=== PATIENT | female | born 1955 | race Caucasian/White ===

== ENCOUNTER 2017-11-08 09:49 | Outpatient (CLI) | payer MEDICARE | END 2017-11-08 09:50 | disposition home or self-care (01) | LOC: BICMRI 09:49 | PROVIDERS: ATTEND Physician Assistant | DX: Z12.31 Encounter for screening mammogram for malignant neoplasm of breast (principal); R42 Dizziness and giddiness | CPT/HCPCS: 70553; 77063; 77067 ==

== ENCOUNTER 2018-05-18 11:47 | Outpatient (CLI) | payer MEDICARE ==
--- NOTE | 2018-05-18 13:58 | MRI ---
MRI CERVICAL SPINE: HISTORY: Cervical radiculopathy, M54.12. TECHNIQUE: Multiplanar, multisequence noncontrast enhanced MRI images cervical spine. RADIOGRAPHIC FINDINGS: C1-2: Unremarkable. C2-3: There is no evidence of significant central stenosis or neural foraminal narrowing. C3-4: There is a mild broad-based disk-osteophyte complex centrally resulting in minimal but not a s ignificant degree of central stenosis. There is moderate bilateral C3-4 neural foraminal narrowing d ue to uncovertebral osteophyte hypertrophy. C4-5: Disk desiccation is seen. There is a broad-based disk-osteophyte complex centrally compressin g the thecal sac resulting in a moderate degree of central and lateral recess stenosis. Moderate temo ateral neural foraminal narrowing is seen due to uncovertebral osteophyte hypertrophy. C5-6: Disk desiccation is seen. There is a broad-based disk-osteophyte complex centrally compressin g the thecal sac resulting in moderate to severe compression of the thecal sac and mild compression o f the spinal cord in the right paracentral region. There is moderate to severe right and moderate le ft C5-6 neural foraminal narrowing due to uncovertebral osteophyte hypertrophy. C6-7: Disk desiccation is seen. There is a broad-based disk-osteophyte complex centrally compressin g the thecal sac resulting in mild central spinal stenosis. Moderate right C6-7 neural foraminal garry rowing is seen. the left neural foramen is patent. There is significant right C6-7 neural foraminal narrowing due to osteophyte encroachment. C7-T1: Unremarkable. IMPRESSION: Broad-based central disk-osteophyte complexes with central and right paracentral significant 5-6 disk -osteophyte complexes compressing the thecal sac and spinal cord. There is also some right C5-6 neur al foraminal narrowing seen. Less significant C4-5 and C6-7 central stenosis also seen. POS: [facility]
--- NOTE | 2018-05-18 15:15 | MRI ---
MRI OF THE LUMBAR SPINE: Date: 05/18/18 HISTORY: Low back pain with right lower extremity radiculopathy. TECHNIQUE: Multiplanar, multisequence MR imaging of the lumbar spine is provided without contrast. FINDINGS: The sagittal STIR imaging demonstrates no focal area of osseous marrow edema. Congenitally short pedi cles lead to diffuse central canal stenosis. There is no anterolisthesis or retrolisthesis noted. Ass uming five lumbar-type vertebral bodies, conus medullaris terminates at T12-L1. T12-L1: Mild bilateral facet hypertrophy with no significant central canal or neural foraminal steno sis. L1-2: There is disc desiccation and disc space narrowing with a small central disc protrusion. There is bilateral facet hypertrophy and hypertrophy of the ligamentum flavum. There is no significant jose tral canal or neural foraminal stenosis. L2-3: Moderate bilateral facet hypertrophy, right greater than left. There is disc space narrowing, disc desiccation, and mild disc bulge. There is no significant central canal or neural foraminal sten osis. L3-4: There is moderate bilateral facet hypertrophy and hypertrophy of the ligamentum flavum. There is disc space narrowing and disc desiccation with moderate central canal stenosis and mid bilateral n eural foraminal stenosis. L4-5: There is disc space narrowing, disc desiccation, and disc bulge. There is a superimposed centr al/left paracentral annular tear and associated central/left paracentral/left foraminal disc protrusi on. There is associated mild central canal stenosis and moderate left lateral recess stenosis. Bilate ral facet hypertrophy present with moderate left and mild right neural foraminal stenosis. L5-S1: Prominent bilateral facet hypertrophy. No significant central canal or neural foraminal steno sis. Retroperitoneal structures demonstrate a small cyst within the right kidney. IMPRESSION: Multilevel lumbar spine degenerative change as detailed above, most prominent at the L4-5 and L3-4 le vels. POS: OFF
== END 2018-05-18 11:48 | disposition home or self-care (01) ==
LOC: BICMRI 11:47
PROVIDERS: ATTEND Neurological Surgery
DX: M47.26 Other spondylosis with radiculopathy, lumbar region (principal); M54.12 Radiculopathy, cervical region; M25.78 Osteophyte, vertebrae; M48.02 Spinal stenosis, cervical region; M99.81 Other biomechanical lesions of cervical region
CPT/HCPCS: 72141; 72148

== ENCOUNTER 2018-06-19 06:32 | Day surgery (SDC) | payer MEDICARE ==
[2018-06-12 16:10] VITALS: BMI 40.6
[2018-06-19] MEDS ORDERED: CEFAZOLIN 2 GM/50 ML BAG ONE ×2 (07:17→13:23)
--- NOTE | 2018-06-19 07:51 | HP ---
HISTORY OF PRESENT ILLNESS: Ms. Callaway is known to us from a consultation for cervical degenerative disk disease in 2011 and returns today with a right-sided C6 radiculopathy and what could potentially be even components of right-sided carpal tunnel syndrome. She has an EMG that reveals evidence of both from Dr. Borrero as well as new MRI from Radiology that reveals foraminal stenosis to the right at C5-C6 that matches her symptoms well. She has attempted various conservative interventions including epidural steroid injections, medications, and therapy with little efficacy. PAST MEDICAL HISTORY: Significant for hyperlipidemia, hypothyroidism, and chronic pain syndrome. CURRENT MEDICATIONS: 1. Lovastatin. 2. Levothyroxine. 3. Biotin. 4. Methocarbamol. 5. Amitriptyline. 6. Tylenol No. 3. 7. Ibuprofen. PAST SURGICAL HISTORY: Left ear x2 and a unspecified wrist surgery. ALLERGIES: NO KNOWN DRUG ALLERGIES. PHYSICAL EXAMINATION: GENERAL: The patient is alert and oriented x3. MUSCULOSKELETAL: Gait is normal. No ataxia. She has a positive Spurling's to the right. Upper extremity motor exam is normal. ASSESSMENT: Cervical radiculopathy, carpal tunnel syndrome. PLAN: Dr. Dill met with the patient, reviewed imaging, and opted for a C5-C6 ACDF as well as a right carpal tunnel release. He explained to the patient the risks, benefits, and alternatives to the procedure. The patient expressed understanding and elected to proceed as discussed. I do believe that the patient is mentally competent and capable of making medical decisions for herself. We will move forward with surgery as planned. Job ID: [id number]
[2018-06-19] MEDS ORDERED: Fentanyl 100 MCG/2 ML VIAL ONE ×2 (08:48→11:36)
[2018-06-19] MEDS ORDERED: Lidocaine 1% w/Epinephrine 1:100K 30 ML VIAL ONE (09:17)
[2018-06-19] MEDS ORDERED: Midazolam HCl 2 mg/2 ml Vial ONE (09:18)
[2018-06-19] MEDS ORDERED: HYDROcodone/Acetaminophen 5/325 mg Tablet ONE ×2 (13:26→14:23)
--- NOTE | 2018-06-19 13:33 | OP ---
DATE OF PROCEDURE: 06/19/2018 PIPE FINISHER: Jeronimo Anthony PA-C. INDICATION: Pain. DIAGNOSES: Cervical radiculopathy and carpal tunnel syndrome, right. PROCEDURES PERFORMED: 1. Anterior cervical discectomy infusion, C5-C6. 2. Right carpal tunnel release. ANESTHESIA: General. DESCRIPTION OF PROCEDURE: The patient was brought into the operating room and placed under general anesthesia. She was placed on table in supine position. A transverse incision was planned over the lateral aspect of the neck on the right. After prepping and draping and after a preoperative pause, the incision was created. The underlying platysma muscles were identified and incised. The blunt tissue plane anterior to the sternocleidomastoid muscle was used to gain access to the prevertebral space. After identifying the appropriate level, annulotomy was performed in the C5-C6 disk. All disk materials as well as anterior and posterior osteophytes were removed. After decompressing the C5-C6 level, a 7 mm lordotic PEEK cage packed with allograft and autograft material was placed within the interbody space. An anterior cervical plate was then fashioned to the front spine and secured with a total of 4 fixed screws. Midline and lateral structures were inspected and found to be free from significant trauma. The wound was irrigated. Hemostasis was maintained throughout. The wound was then closed in anatomic layers and a pressure dressing was applied. There were no known procedural complications. Under the same anesthesia, the patient was redraped, extending the right arm perpendicular to the body. It was prepped up to the level of the axilla. A linear incision was then planned across the wrist on the right side in line with a long axis of the fourth digit. This area was carefully infiltrated with lidocaine. After a pause, incision was created. A self-retaining retractor was placed. The underlying carpal tunnel ligament was identified and incised. The incision was extended in proximal and distal directions until the carpal tunnel elements were decompressed. The wound was again irrigated. Hemostasis was maintained throughout. The incision was closed in a single-layer technique. The procedure came to an end without known complication. Job ID: [id number]
[2018-06-19] MEDS ORDERED: Lidocaine 1% PF 5 ML VIAL ONE (14:08)
[2018-06-19] MEDS ORDERED: ePHEDrine/0.9% NaCl/PF SYRINGE 50 mg/10 ml ONE (14:08)
[2018-06-19] MEDS ORDERED: Ondansetron PF 4 MG/2 ML Vial ONE (14:08)
[2018-06-19] MEDS ORDERED: PHENYLEPHRINE-NS 100 MCG/ML 10 ML SYRINGE ONE (14:08)
[2018-06-19] MEDS ORDERED: PROPOFOL 200 MG/20 ML VIAL ONE (14:08)
[2018-06-19] MEDS ORDERED: Glycopyrrolate 0.2 MG/ML 5 ML SYRINGE ONE ×2 (14:08)
== END 2018-06-19 14:12 | disposition home or self-care (01) ==
LOC: SDC 06:32
PROVIDERS: ATTEND Neurological Surgery
PROC: 01N50ZZ Release Median Nerve, Open Approach (ICD-10-PCS; principal; 2018-06-19)
PROC: 0RG1070 Fusion of Cervical Vertebral Joint with Autologous Tissue Substitute, Anterior Approach, Anterior Column, Open Approach (ICD-10-PCS; 2018-06-19)
DX: M54.12 Radiculopathy, cervical region (principal); G56.01 Carpal tunnel syndrome, right upper limb; E78.5 Hyperlipidemia, unspecified; E03.9 Hypothyroidism, unspecified; Z79.899 Other long term (current) drug therapy
CPT/HCPCS: 76001; 96374; C1713; C1776; J2001; J2250; J3010

== ENCOUNTER 2018-07-26 12:16 | Outpatient (CLI) | payer MEDICARE | END 2018-07-26 12:17 | disposition home or self-care (01) | LOC: CP 12:16 | PROVIDERS: ATTEND Internal Medicine Critical Care Medicine | DX: J44.9 Chronic obstructive pulmonary disease, unspecified (principal); R06.09 Other forms of dyspnea | CPT/HCPCS: 80307; 94060; 94727; 94729; G0483 ==

== ENCOUNTER 2018-08-10 08:59 | Outpatient (CLI) | payer MEDICARE ==
--- NOTE | 2018-08-10 11:51 | BD ---
DEXA BONE SCAN: HISTORY: Age-related osteoporosis. FINDINGS: DEXA bone scan is performed using Hologic bone mineral density unit. Lumbar Spine: BMD (g/cm2) L1 0.95 T-Score: -0.3 Z-Score: 1.0 L2 0.98 T-Score: -0.4 Z-Score: 1.1 L3 1.02 T-Score: -0.6 Z-Score: 1.0 L4 1.05 T-Score: -0.1 Z-Score: 1.6 L1-L4 1.00 T-Score: -0.4 Z-Score: 1.2 Left Hip: Femoral Neck: 0.81 T-Score: -0.3 Z-Score: 1.0 Total Femur: 0.96 T-Score: -0.2 Z-Score: 1.2 Impression: Normal bone mineral density. The patient does not have a significant increased risk of osteoporotic fractures. POS: [facility]
== END 2018-08-10 09:00 | disposition home or self-care (01) ==
LOC: BICMAMMO 08:59
PROVIDERS: ATTEND Physician Assistant
DX: Z13.820 Encounter for screening for osteoporosis (principal); M51.37 Other intervertebral disc degeneration, lumbosacral region
CPT/HCPCS: 77080

== ENCOUNTER 2018-11-21 10:50 | Outpatient (CLI) | payer MEDICARE ==
--- NOTE | 2018-11-21 11:45 | MMO ---
Bilateral MAMMO Bilat Screen [facility]. CLINICAL HISTORY: Patient is 63 years old and is seen for screening. The patient has no family history of breast cancer. The patient has no personal history of cancer. VIEWS: The views performed were: bilateral craniocaudal with tomosynthesis and bilateral mediolateral oblique with tomosynthesis. FILMS COMPARED: The present examination has been compared to prior imaging studies performed at [facility] on 07/30/2013, 08/16/2014, 08/18/2015, 11/01/2016 and 11/08/2017. MAMMOGRAM FINDINGS: There are scattered fibroglandular densities. There are no suspicious masses, suspicious calcifications, or new areas of architectural distortion. IMPRESSION: THERE IS NO MAMMOGRAPHIC EVIDENCE OF MALIGNANCY. A ROUTINE FOLLOW-UP MAMMOGRAM IN 1 YEAR IS RECOMMENDED. THE RESULTS OF THIS EXAM WERE SENT TO THE PATIENT. ACR BI-RADS Category 1 - Negative MAMMOGRAPHY NOTE: 1. A negative mammogram report should not delay a biopsy if a dominant of clinically suspicious mass is present. 2. Approximately 10% to 15% of breast cancers are not detected by mammography. 3. Adenosis and dense breasts may obscure an underlying neoplasm.
== END 2018-11-21 10:51 | disposition home or self-care (01) ==
LOC: BICMAMMO 10:50
PROVIDERS: ATTEND Physician Assistant
DX: Z12.31 Encounter for screening mammogram for malignant neoplasm of breast (principal)
CPT/HCPCS: 77063; 77067

== ENCOUNTER 2019-01-15 15:32 | Inpatient (IN) | payer MEDICARE ==
[2019-01-15] MEDS ORDERED: PROPOFOL 200 MG/20 ML VIAL ONE (16:21)
[2019-01-15] MEDS ORDERED: Dexamethasone 20 MG/5 ML VIAL ONE (16:21)
[2019-01-15] MEDS ORDERED: Lidocaine 1% PF 5 ML VIAL ONE (16:21)
[2019-01-15] MEDS ORDERED: Ondansetron PF 4 MG/2 ML Vial ONE (16:21)
[2019-01-15] MEDS ORDERED: Succinylcholine Chloride 20 MG/ML 10 ml SYRINGE FS ONE (16:21)
[2019-01-15] MEDS ORDERED: Glycopyrrolate 0.2 MG/ML 5 ML SYRINGE ONE (16:21)
[2019-01-15] MEDS ORDERED: Rocuronium Bromide 10 MG/ML (10ML VIAL) ONE (16:21)
[2019-01-15] MEDS ORDERED: ePHEDrine 50 MG/ML VIAL ONE (16:21)
--- NOTE | 2019-01-15 16:26 | RAD ---
EXAM: CHEST ONE VIEW HISTORY: Preoperative evaluation. Appendicitis. COMPARISON: 03/16/2018 FINDINGS: The cardiac silhouette and pulmonary vasculature is within normal limits. There is linear atelectasis present at the left lung base. Lungs otherwise appear clear. There have been interval postsurgical changes related to anterior cervical fusion lower cervical spine. Degenerative changes are seen in th oracic spine. No other interval change. IMPRESSION: No acute cardiopulmonary process.
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
[2019-01-15] MEDS ORDERED: Promethazine HCl 25 MG/ML VIAL IM PRN ×2 (20:57→21:48)
[2019-01-15] MEDS ORDERED: Ondansetron HCl/PF 4 MG/2 ML Vial IVP PRN (20:57)
[2019-01-15] MEDS ORDERED: Promethazine HCl 25 MG/ML VIAL SLOW IVP PRN (20:57)
[2019-01-15] MEDS ORDERED: Fentanyl 100 MCG/2 ML VIAL ONE (21:06)
[2019-01-15] MEDS ORDERED: Dextrose 5% in Water 1,000 ML IV PRN (21:48)
[2019-01-15] MEDS ORDERED: Morphine 4 MG/ML VIAL SLOW IVP PRN (21:48)
[2019-01-15] MEDS ORDERED: Ondansetron PF 4 MG/2 ML Vial IVP PRN (21:48)
[2019-01-15] MEDS ORDERED: HYDROcodone/Acetaminophen 10/325 mg Tablet PO PRN (21:48)
[2019-01-15] MEDS ORDERED: Morphine 2 MG/ML SYRINGE SLOW IVP PRN (21:48)
[2019-01-15] MEDS ORDERED: Dextrose 50% Abboject 50 ML SYRINGE SLOW IVP PRN (21:48)
[2019-01-15] MEDS ORDERED: hydrALAZINE 20 MG/ML VIAL SLOW IVP PRN (21:48)
[2019-01-15] MEDS: D5 1/2 NS w/20 mEq KCL 1,000 ML IV SCH (22:39)
[2019-01-15 23:33] VITALS: BMI 43.4
[2019-01-16] MEDS: Ketorolac Tromethamine 60 MG/2 ML VIAL IVP SCH ×2 (00:51→05:46)
[2019-01-16 03:58] VITALS: TEMP 98.2
[2019-01-16 05:24] LABS: #Monocytes 0.3 thou/uL (0.11-0.59); #Neutrophils 6.7 thou/uL (1.40-6.50); %Basophils 0.5 % (0.0-1.0); %Lymphocytes 12.1 % (21.0-51.0); %Monocytes 3.1 % (0.0-10.0); %Neutrophils 84.2 % (42.0-75.0); Hemoglobin 12.6 g/dL (12.0-16.0); Mean Corpuscular Hemoglobin 30.9 pg (27.0-31.0); Mean Platelet Volume 6.5 fL (7.4-10.4); Platelet Count 205 thou/uL (130-400); RBC Distribution Width 11.2 % (11.5-14.5); Red Blood Cell (RBC) Count 4.06 mill/uL (4.20-5.40)
[2019-01-16] MEDS: D5 1/2 NS w/20 mEq KCL 1,000 ML IV SCH (05:47)
[2019-01-16] MEDS ORDERED: Famotidine/PF 20 mg/2ml Vial SLOW IVP SCH (09:00)
[2019-01-16] MEDS ORDERED: Famotidine 20 MG TAB PO SCH (09:00)
[2019-01-16 09:21] VITALS: BP 100/65
--- NOTE | 2019-01-16 11:53 | DIS ---
DATE OF ADMISSION: 01/15/2019 DATE OF DISCHARGE: 01/16/2019 ADMISSION DIAGNOSIS: Acute appendicitis. DISCHARGE DIAGNOSIS: Acute appendicitis. OPERATION PERFORMED: Laparoscopic appendectomy. ADMISSION HISTORY: The patient is a 63-year-old white female. She presented to the emergency room with symptoms and CT scan typical of acute appendicitis. She was taken to the operating room for appendectomy. HOSPITAL COURSE: Laparoscopic appendectomy was performed uneventfully. She had an uneventful evening. She is tolerating her diet and ambulating. She has been afebrile with normal vital signs. Laboratory studies revealed normal white blood cell count of 8 and a hemoglobin of 12.6. On examination, her lungs are clear and her abdomen is benign with incisions healing nicely. In summary, she is doing well following laparoscopic appendectomy. She will follow up with myself in 2 weeks. She was given a discharge prescription for tramadol. Job ID: [id number]
--- NOTE | 2019-01-17 13:10 | OP ---
DATE OF PROCEDURE: 01/15/2019 PREOPERATIVE DIAGNOSIS: Acute appendicitis. POSTOPERATIVE DIAGNOSIS: Acute appendicitis. PROCEDURE PERFORMED: Laparoscopic appendectomy. ANESTHESIA: General endotracheal. INDICATIONS: The patient is a 63-year-old white female. She presented with findings consistent with acute appendicitis confirmed on CT scan. She was taken to the operating room at this time for laparoscopic appendectomy. DESCRIPTION OF OPERATION: Informed consent was obtained. The patient was taken to the operating room, where general endotracheal anesthesia was obtained with the patient in supine position. Abdomen was prepped with ChloraPrep and draped in sterile fashion. Local anesthetic was infiltrated using 0.25% Marcaine with epinephrine. A 5-mm infraumbilical incision was created through which a Veress needle was passed in the peritoneal cavity and pneumoperitoneum was established using carbon dioxide up to pressure of 15 mmHg. A 5-mm trocar port sites was passed through the same incision and laparoscopic camera was passed through this port. Under direct vision, I placed two additional ports including a 5 mm left lower quadrant port and a 12 mm suprapubic port. Attention was turned to the right lower quadrant. The patient was noted to have obvious acute appendicitis with adherence to surrounding structures. These were mobilized easily bluntly. Mesoappendix was grasped and taken down using electrocautery to skeletonize the base of the appendix. There was no inflammation at the base of the appendix. I therefore divided at this level between PDS Endoloops and cauterized the appendiceal stump. The appendix was placed in a specimen retrieval sac, which was removed through the suprapubic port. The fascia was closed with 0 Vicryl suture using a GraNee needle. The right lower quadrant pelvis was thoroughly irrigated. All irrigant was aspirated. All ports and instruments were removed under direct vision. Pneumoperitoneum was carefully evacuated. A 0.25% Marcaine with epinephrine was infiltrated into each port site. Skin edges were approximated with 4-0 Monocryl subcuticular suture. Dermabond was placed externally. There were no complications. The patient tolerated the procedure well and was taken to recovery room in stable condition. Job ID: [id number]
== END 2019-01-16 11:25 | disposition home or self-care (01) | DRG 343 ==
LOC: ERS 15:32 → SDC/OP 18:00 → OBSVTOIN 20:41 → SURG A 20:41
PROVIDERS: ADMIT Surgery; ATTEND Surgery
PROC: 0DTJ4ZZ Resection of Appendix, Percutaneous Endoscopic Approach (ICD-10-PCS; principal; 2019-01-15)
DX: K35.80 Unspecified acute appendicitis (principal); E78.00 Pure hypercholesterolemia, unspecified; E03.9 Hypothyroidism, unspecified; Z30.2 Encounter for sterilization; Z87.891 Personal history of nicotine dependence
CPT/HCPCS: 36415; 71045; 85025; 88304; 93005; 94760; J1100; J1885; J2001; J2405; J2704; J3010; J3490

== ENCOUNTER 2019-11-30 10:53 | Outpatient (CLI) | payer MEDICARE ==
--- NOTE | 2019-11-30 11:37 | MMO ---
Bilateral MAMMO Bilat Screen [facility]. CLINICAL HISTORY: Patient is 64 years old and is seen for screening. The patient has no family history of breast cancer. The patient has no personal history of cancer. VIEWS: The views performed were: bilateral craniocaudal with tomosynthesis and bilateral mediolateral oblique with tomosynthesis. FILMS COMPARED: The present examination has been compared to prior imaging studies performed at [facility] on 08/18/2015, 11/01/2016, 11/08/2017 and 11/21/2018. This study has been interpreted with the assistance of computer-aided detection. MAMMOGRAM FINDINGS: There are scattered fibroglandular densities. There are no suspicious masses, suspicious calcifications, or new areas of architectural distortion. IMPRESSION: THERE IS NO MAMMOGRAPHIC EVIDENCE OF MALIGNANCY. A ROUTINE FOLLOW-UP MAMMOGRAM IN 1 YEAR IS RECOMMENDED. THE RESULTS OF THIS EXAM WERE SENT TO THE PATIENT. ACR BI-RADS Category 1 - Negative MAMMOGRAPHY NOTE: 1. A negative mammogram report should not delay a biopsy if a dominant of clinically suspicious mass is present. 2. Approximately 10% to 15% of breast cancers are not detected by mammography. 3. Adenosis and dense breasts may obscure an underlying neoplasm. Reported by: DILLAN CLAYTON MD Electonically Signed: [id number]
== END 2019-11-30 10:54 | disposition home or self-care (01) ==
LOC: BICMAMMO 10:53
PROVIDERS: ATTEND Physician Assistant
DX: Z12.31 Encounter for screening mammogram for malignant neoplasm of breast (principal)
CPT/HCPCS: 77063; 77067

== ENCOUNTER 2020-02-12 13:25 | Outpatient (CLI) | payer MEDICARE ==
--- NOTE | 2020-02-12 13:45 | BD ---
EXAM: DEXA bone density examination HISTORY: 64-year-old postmenopausal female for screening COMPARISON: 08/10/2018 FINDINGS: L1--bone mineral density 0.986 g/sq cm; T score 0.0 L2--bone mineral density 0.999 g/sq cm; T score -0.3 L3--bone mineral density 0.987 g/sq cm; T score -0.9 L4--bone mineral density 0.915 g/sq cm; T score -1.3 Total L1-L4--bone mineral density 0.970 g/sq cm; T score -0.7 Left femoral neck--bone mineral density0.813; T score -0.3 Total proximal left femur--bone mineral density 1.069; T score 1.0 IMPRESSION: Normal bone density. When compared to the prior examination, the bone density in the hip has increased approximately 11% and the bone density in the spine has decreased approximately 3.5%.
== END 2020-02-12 13:26 | disposition home or self-care (01) ==
LOC: BICMAMMO 13:25
PROVIDERS: ATTEND Physician Assistant
DX: Z13.820 Encounter for screening for osteoporosis (principal); M19.90 Unspecified osteoarthritis, unspecified site
CPT/HCPCS: 77080

== ENCOUNTER 2020-10-21 10:56 | Outpatient (CLI) | payer MEDICARE, OTHER | END 2020-10-21 10:57 | disposition home or self-care (01) | LOC: BICMRI 10:56 | PROVIDERS: ATTEND Neurological Surgery | DX: M54.16 Radiculopathy, lumbar region (principal); M48.061 Spinal stenosis, lumbar region without neurogenic claudication | CPT/HCPCS: 72148 ==

== ENCOUNTER 2020-11-21 13:20 | Outpatient (CLI) | payer MEDICARE, OTHER ==
[2020-11-22 01:51] LABS: SARS-CoV-2 PCR by NAA Not Detected (NotDetected)
== END 2020-11-21 13:21 | disposition home or self-care (01) ==
LOC: LABBT 13:20
PROVIDERS: ATTEND Neurological Surgery
DX: Z01.812 Encounter for preprocedural laboratory examination (principal); M54.16 Radiculopathy, lumbar region; M48.061 Spinal stenosis, lumbar region without neurogenic claudication; Z20.822 Contact with and (suspected) exposure to COVID-19
CPT/HCPCS: U0003; U0005; 87635

== ENCOUNTER 2020-11-26 05:43 | Day surgery (SDC) | payer MEDICARE, MEDICAID ==
[2020-11-25 11:39] VITALS: BMI 40.4
[2020-11-26] MEDS ORDERED: EPINEPHrine 1 MG/ML AMP ONE (06:09)
[2020-11-26] MEDS ORDERED: Bupivacaine PF 0.5% 30 ML VIAL ONE (06:09)
[2020-11-26] MEDS ORDERED: Thrombin 5000 UNITS/5 ML VIAL ONE (06:09)
[2020-11-26] MEDS ORDERED: Fentanyl 100 MCG/2 ML VIAL ONE ×2 (06:14→09:07)
[2020-11-26] MEDS ORDERED: Rocuronium Bromide 10 MG/ML (10ML VIAL) ONE (07:00)
[2020-11-26] MEDS ORDERED: Lidocaine 1% PF 5 ML VIAL ONE (07:00)
[2020-11-26] MEDS ORDERED: Glycopyrrolate 0.2 MG/ML 5 ML SYRINGE ONE (07:00)
[2020-11-26] MEDS ORDERED: PROPOFOL 200 MG/20 ML VIAL ONE (07:00)
[2020-11-26] MEDS ORDERED: Dexamethasone 20 MG/5 ML VIAL ONE (07:00)
[2020-11-26] MEDS ORDERED: ePHEDrine Sulfate 50 MG/10 ML VIAL ONE (07:00)
[2020-11-26] MEDS ORDERED: Ondansetron PF 4 MG/2 ML Vial ONE (07:00)
[2020-11-26] MEDS ORDERED: Cyclobenzaprine 10 MG TAB ONE (09:53)
[2020-11-26] MEDS ORDERED: HYDROcodone/Acetaminophen 5/325 mg Tablet ONE (10:44)
== END 2020-11-26 13:05 | disposition home or self-care (01) ==
LOC: SDC 05:43
PROVIDERS: ATTEND Neurological Surgery
PROC: 01NB0ZZ Release Lumbar Nerve, Open Approach (ICD-10-PCS; principal; 2020-11-26)
DX: M48.062 Spinal stenosis, lumbar region with neurogenic claudication (principal); M19.90 Unspecified osteoarthritis, unspecified site; E78.00 Pure hypercholesterolemia, unspecified; E03.9 Hypothyroidism, unspecified; Z79.899 Other long term (current) drug therapy; Z91.048 Other nonmedicinal substance allergy status; Z98.1 Arthrodesis status
CPT/HCPCS: 76000; 93005; 93010; J0171; J0690; J1100; J2405; J2704; J3010; S0020

== ENCOUNTER 2020-12-11 12:01 | Outpatient (CLI) | payer MEDICARE, MEDICAID ==
[~2020-12-11 12:01] MED LIST: Morphine Sulfate 2 MG/ML SYRINGE SLOW IVP PRN; Ondansetron HCl/PF 4 MG/2 ML Vial IVP PRN; Promethazine HCl 25 MG/ML VIAL IM PRN; Promethazine HCl 25 MG/ML VIAL SLOW IVP PRN
== END 2020-12-11 12:02 | disposition home or self-care (01) ==
LOC: BICMAMMO 12:01
PROVIDERS: ATTEND Physician Assistant
DX: Z12.31 Encounter for screening mammogram for malignant neoplasm of breast (principal)
CPT/HCPCS: 77063; 77067

== ENCOUNTER 2021-11-20 12:08 | Outpatient (CLI) | payer MEDICARE, MEDICAID | END 2021-11-20 12:09 | disposition home or self-care (01) | LOC: BICCT 12:08 | PROVIDERS: ATTEND Physician Assistant | DX: Z12.2 Encounter for screening for malignant neoplasm of respiratory organs (principal); F17.211 Nicotine dependence, cigarettes, in remission; J44.9 Chronic obstructive pulmonary disease, unspecified | CPT/HCPCS: 71271 ==

== ENCOUNTER 2021-12-15 10:35 | Outpatient (CLI) | payer MEDICARE, MEDICAID | END 2021-12-15 10:36 | disposition home or self-care (01) | LOC: BICMAMMO 10:35 | PROVIDERS: ATTEND Physician Assistant | DX: Z12.31 Encounter for screening mammogram for malignant neoplasm of breast (principal) | CPT/HCPCS: 77063; 77067 ==

== ENCOUNTER 2022-10-19 12:03 | Outpatient (CLI) | payer OTHER | END 2022-10-19 12:04 | disposition home or self-care (01) | LOC: EEG 12:03 | PROVIDERS: ATTEND Psychiatry & Neurology Neurology | DX: R41.3 Other amnesia (principal) | CPT/HCPCS: 95816; 95957 ==

== ENCOUNTER 2022-11-11 10:31 | Outpatient (CLI) | payer OTHER | END 2022-11-11 10:32 | disposition home or self-care (01) | LOC: TBSIIMAG 10:31 | PROVIDERS: ATTEND Neurological Surgery | DX: M54.2 Cervicalgia (principal); M47.812 Spondylosis without myelopathy or radiculopathy, cervical region; Z98.890 Other specified postprocedural states | CPT/HCPCS: 72040 ==

== ENCOUNTER 2023-01-04 10:31 | Outpatient (CLI) | payer OTHER | END 2023-01-04 10:32 | disposition home or self-care (01) | LOC: BICMAMMO 10:31 | PROVIDERS: ATTEND Physician Assistant | DX: Z12.31 Encounter for screening mammogram for malignant neoplasm of breast (principal) | CPT/HCPCS: 77063; 77067 ==

== ENCOUNTER 2023-03-24 10:14 | Outpatient (CLI) | payer OTHER | END 2023-03-24 10:15 | disposition home or self-care (01) | LOC: BICCT 10:14 | PROVIDERS: ATTEND Physician Assistant | DX: Z12.2 Encounter for screening for malignant neoplasm of respiratory organs (principal); Z87.891 Personal history of nicotine dependence | CPT/HCPCS: 71271 ==

== ENCOUNTER 2024-01-09 11:44 | Outpatient (CLI) | payer OTHER | END 2024-01-09 11:45 | disposition home or self-care (01) | LOC: BICMAMMO 11:44 | PROVIDERS: ATTEND Physician Assistant | DX: Z12.31 Encounter for screening mammogram for malignant neoplasm of breast (principal); Z80.3 Family history of malignant neoplasm of breast | CPT/HCPCS: 77063; 77067 ==

== ENCOUNTER 2024-05-14 08:13 | Outpatient (CLI) | payer OTHER | END 2024-05-14 08:14 | disposition home or self-care (01) | LOC: RAD 08:13 | PROVIDERS: ATTEND Internal Medicine | DX: R06.00 Dyspnea, unspecified (principal) | CPT/HCPCS: 71046 ==